=== PATIENT | female | born 1980 ===

== ENCOUNTER 2017-10-15 13:02 | Outpatient (REF) | payer SELFPAY ==
[2017-10-16 14:12] LABS: HBs Antibody, Quant <3.1 mIU/mL; Hepatitis B Surface Ab Negative
[2017-10-16 15:23] LABS: Measles IgG Antibody Positive; Mumps Antibody IgG Positive (Negative); Rubella IgG Ab (UVM) Positive; Varicella IgG Antibody Positive
[2017-10-19 14:41] LABS: TB Interpretation Negative (NEGAT)
== END 2017-10-15 13:03 ==
LOC: LBO 13:02
PROVIDERS: Visit Provider Nurse Practitioner Family
DX: Z02.1 Encounter for pre-employment examination (principal); Z01.84 Encounter for antibody response examination